=== PATIENT | female | born 1980 | race Caucasian/White ===

== ENCOUNTER 2019-07-17 18:08 | Emergency (ER) | payer OTHER, SELFPAY ==
[2019-07-17 18:11] VITALS: BP 154/86; PULSE 93; RESP 16; TEMP 36.8; O2SAT 96
[2019-07-17 19:03] LABS: Add Urine Microscopic? NO; Appearance Urine Clear (Clear); Basophils Absolute Auto 0.1 K/mm3 (0.0-0.1); Basophils Percent Auto 0.5 % (0.2-1.2); Bilirubin Urine Negative (Negative); Blood Urine Negative (Negative); Color Urine Yellow (Yellow); Eosinophils Absolute Auto 0.2 K/mm3 (0-0.3); Eosinophils Percent Auto 2.2 % (0-4.4); Glucose Urine UA Negative (Negative); Hematocrit 44.1 % (37.0-47.0); Hemoglobin 14.7 g/dL (12.0-15.0); Immature Granulocyte Absolute 0.06 K/mm3 (0.00-0.031); Immature Granulocyte Percent A 0.6 % (0-0.5); Ketones Urine Negative (Negative); Leukocyte Esterase Ur Negative LEU/UL (Negative); Lymphocytes Absolute Auto 3.96 K/mm3 (0.9-3.2); Lymphocytes Percent Auto 40.8 % (18.3-44.2); Mean Corpuscular HGB Conc 33.3 g/dl (32-36); Mean Corpuscular Hemoglobin 30.1 pg (26-34); Mean Corpuscular Volume 90.2 fl (80-100); Mean Platelet Volume 10.5 fl (7.4-10.4); Monocytes Absolute Auto 0.8 K/mm3 (0.1-0.6); Monocytes Percent Auto 8.7 % (2.6-8.5); Neutrophils Absolute Auto 4.6 K/mm3 (1.3-6.7); Neutrophils Percent Auto 47.2 % (45.5-73.1); Nitrate Urine Negative (Negative); Platelet Count Result 350 k/mm3 (150-375); Protein Urine Negative (Negative); Red Blood Count 4.89 M/mm3 (4.2-5.4); Red Cell Distribution Width 12.9 % (11.5-14.5); Specific Grav Ur 1.024 (1.001-1.035); Urobilinogen Urine Negative mg/dL (<2.0); White Blood Count 9.7 K/mm3 (4.5-10.0)
[2019-07-17 19:15] LABS: Alanine Aminotransferase 35 U/L (4-35); Albumin Level 4.7 g/dL (3.5-5.1); Alkaline Phosphatase 64 U/L (38-126); Aspartate Amino Transferase 26 U/L (14-36); Bilirubin,Total 0.2 mg/dL (0.2-1.3); Blood Urea Nitrogen 15 mg/dL (7-17); Calcium 9.5 mg/dL (8.4-10.2); Carbon Dioxide 21 mmol/L (22-30); Chloride 99 mmol/L (98-107); Estimated CRCL calculation 141 ml/min; Estimated Glomerular Filt Rate > 60; Glucose 112 mg/dL (65-105); Lipase 84 U/L (23-300); Potassium 4.1 mmol/L (3.4-5.0); Sodium 136 mmol/L (137-145)
[2019-07-17 20:48] VITALS: BP 157/79; PULSE 75; RESP 16; O2SAT 99
--- NOTE | 2019-07-17 21:25 | ED.ABDPAIN ---
HPI - Abdominal Pain General Chief Complaint: Abdominal Pain Stated Complaint: abd pain Time Seen by Provider: 07/17/19 19:24 Source: patient Mode of arrival: ambulatory Limitations: no limitations History of Present Illness HPI narrative: Patient presents with chief complaint of short, cramping, stabbing pain suprapubically that lasted for approximately 30 minutes prior to arrival. Patient states she did not have any fever, nausea, vomiting, diarrhea, back pain, urinary symptoms. Patient states the pain felt like contractions. Patient states that her fallopian tubes have been removed so she is not . Patient states that she recently into her menstrual cycle. Patient denies eating or drinking anything that she believes could have caused her symptoms. Patient denies any pain at this time. Related Data Home Medications Medication Instructions Recorded Confirmed metformin mg PO 07/17/19 norethindrone-e.estradiol-iron tablet 07/17/19 [] Allergies Allergy/AdvReac Type Severity Reaction Status Date / Time No Known Allergies Allergy Verified 07/17/19 18:30 Review of Systems Review of Systems: Narrative: CONSTITUTIONAL: Denies fever, chills, or sweats. EYES: Denies visual changes, redness, or discharge. ENT: Denies rhinorrhea, congestion, sore throat, or otalgia. CARDIOVASCULAR: Denies chest pain, palpitations, or edema. RESPIRATORY: Denies cough or dyspnea. GASTROINTESTINAL: Reported sharp abdominal pain, denies nausea, vomiting, or diarrhea. GENITOURINARY: Denies dysuria or hematuria. SKIN: Denies rash or itching. MUSCULOSKELETAL: Denies back pain, joint pain, or myalgia. NEUROLOGIC: Denies headache, numbness, dizziness, or weakness. PSYCHIATRIC: Denies anxiety or depression. PMFSH Social History Social History Alcohol intake: current Gender identity (if verbalized by the patient): Female Exam Narrative: Exam Narrative: GENERAL: Well-appearing, well-nourished, and in no acute distress. HEAD: Normocephalic, atraumatic. EYES: PERRLA and EOMI. ENT: Nares clear, no rhinorrhea or epistaxis. Mucous membranes moist. Oropharynx without tonsillar hypertrophy exudate or other lesions. Bilateral TMs pearly chandra nonbulging NECK: Supple. No adenopathy or masses. No carotid bruits or JVD CHEST: Clear to auscultation. No respiratory distress. No wheezes rales or rhonchi HEART: Regular rate and rhythm. No murmur heard. Normal peripheral pulses. ABDOMEN: Soft, nontender, nondistended, normal active bowel sounds. EXTREMITIES: Normal range of motion. No edema. SKIN: Warm, dry, no rash. NEURO: No focal deficits. Alert and oriented x3. PSYCH: Normal mood and affect. Course Vital Signs Vital signs: Vital Signs Temperature 98.2 F 07/17/19 18:11 Pulse Rate 93 07/17/19 18:11 Respiratory Rate 16 07/17/19 18:11 Blood Pressure 154/86 H 07/17/19 18:11 Pulse Oximetry 96 07/17/19 18:11 Temperature 98.2 F 07/17/19 18:11 Pulse Rate 75 07/17/19 20:48 Respiratory Rate 16 07/17/19 20:48 Blood Pressure 157/79 H 07/17/19 20:48 Pulse Oximetry 99 07/17/19 20:48 MDM - Abdominal Pain MDM Narrative Medical decision making narrative: Discussed with the patient that her lab work and urine are negative for any acute findings that would be suggestive of the cause of her symptoms. Patient's is in the room and recalls that the patient was diagnosed with endometriosis by her CARE MANAGEMENT ASSOCIATE last week. Patient's symptoms are feeding with endometriosis crampy, sharp stabbing pains. Patient does not have any pain at this time. Patient instructed to follow-up with her CARE MANAGEMENT ASSOCIATE as they are working on managing her endometriosis and are considering control tablets versus hysterectomy. Patient is ready to return to emergency department if she has any re-presenting or urgent symptoms for further evaluation and imaging. Patient states that she has had ultrasounds and other testing performed
== END 2019-07-17 20:54 | disposition home or self-care (01) ==
PROVIDERS: Emergency Medicine; Emergency Provider Emergency Medicine
DX: R10.9 Unspecified abdominal pain (principal)
CPT/HCPCS: 36415; 80053; 81003; 81025; 83690; 85025; 99283

== ENCOUNTER → 2020-12-17 17:18 | Outpatient (CLI) | payer BC, SELFPAY ==
--- NOTE | ~2020-12-17 | MM_ITS ---
EXAMINATION: MM screening bhavna BI w vamshi HISTORY: Baseline screening. TECHNIQUE: Craniocaudal and mediolateral oblique 3-D tomosynthesis images were obtained and synthetic 2-D images were generated. CAD analysis was submitted and interpreted. COMPARISON: None, baseline BREAST PARENCHYMAL COMPOSITION: The breasts are heterogeneously dense, which may obscure small masses . FINDINGS: RIGHT BREAST: A low-density mass is present in the middle third of the upper outer quadrant of the br east could reflect a cyst. No suspicious calcification or architectural distortion are identified. LEFT BREAST: There is no evidence of suspicious mass, calcification, or architectural distortion to s uggest malignancy. IMPRESSION: 1. Right breast mass. 2. Additional mammographic views and possible breast ultrasound are recommended to evaluate for malig willa and establish a baseline given that this is the first mammographic examination. BI-RADS Category 0: Incomplete: Needs additional imaging evaluation. Reviewed, dictated and finalized at location A. IMPRESSION: 1. Right breast mass. 2. Additional mammographic views and possible breast ultrasound are recommended to evaluate for malignancy and establish a baseline given that this is the fir st mammographic examination. BI-RADS Category 0: Incomplete: Needs additional imaging evaluation.
== END ==
PROVIDERS: Visit Provider Obstetrics & Gynecology
DX: Z12.31 Encounter for screening mammogram for malignant neoplasm of breast (principal); R92.8 Other abnormal and inconclusive findings on diagnostic imaging of breast
CPT/HCPCS: 77063; 77067

== ENCOUNTER → 2021-02-04 07:45 | Outpatient (CLI) | payer BC, SELFPAY ==
--- NOTE | ~2021-02-04 | MMUS_ITS ---
EXAMINATION: MM diagnostic bhavna RT w vamshi, US breast RT limited HISTORY: Follow-up right breast mass TECHNIQUE: Additional 3-D tomosynthesis images of the right breast were performed and synthetic 2-D i mages were generated. CAD analysis was submitted and interpreted. High resolution Limited right breas t ultrasound was performed. COMPARISON: 12/17/2020 BREAST PARENCHYMAL COMPOSITION: The breasts are heterogenously dense, which may obscure small masses FINDINGS: MAMMOGRAPHIC FINDINGS: There is a persistent radiolucent mass in the upper outer quadrant of the right breast. No suspicious architectural distortion or calcifications. ULTRASOUND: Limited right breast ultrasound: At 9:00, 7 cm from the nipple, there is a 1.8 cm cyst corresponding to the mammographic finding. At 9:00, 7 cm from the nipple there is a 7 mm cyst. No suspicious masses to suggest malignancy. IMPRESSION: 1. No evidence for malignancy in the right breast. Benign cysts. 2. Routine yearly screening mammogram and regular clinical breast examination are recommended. BI-RADS Category 2: Benign finding(s). Reviewed, dictated and finalized at location A. IMPRESSION: 1. No evidence for malignancy in the right breast. Benign cysts. 2. Routine yearly screening mammogram and regular clinical breast examination a re recommended. BI-RADS Category 2: Benign finding(s).
== END ==
PROVIDERS: Visit Provider Obstetrics & Gynecology
DX: N63.15 Unspecified lump in the right breast, overlapping quadrants (principal)
CPT/HCPCS: 76642; 77061; 77065; G0279

== ENCOUNTER → 2021-05-12 13:56 | Outpatient (CLI) | payer BC, SELFPAY ==
--- NOTE | ~2021-05-12 | US_ITS ---
EXAMINATION: US pelvic complete DATE: 05/12/2021 14:09 INDICATION: Right ovarian cyst, history of hysterectomy TECHNIQUE: Multiple transabdominal and endovaginal sonographic images of the pelvis were obtained. COMPARISON: None. FINDINGS: The uterus is surgically absent. The right ovary measures 4.1 x 3.9 x 4.7 cm and contains a 3.5 cm simple cyst. The left ovary measures 2.1 x 2.3 x 2 cm. There is normal vascular flow in the o varies. There is no free fluid in the pelvis. IMPRESSION: 1. 3.5 cm simple cyst of the right ovary, considered normal in a reproductive age female requiring no further follow-up. Reviewed, dictated and finalized at location A. ING AND PRIMING OPERATOR IMPRESSION: 1. 3.5 cm simple cyst of the right ovary, considered normal in a reproductive a ge female requiring no further follow-up.
== END ==
PROVIDERS: Visit Provider Obstetrics & Gynecology
DX: N83.201 Unspecified ovarian cyst, right side (principal)
CPT/HCPCS: 76856

== ENCOUNTER → 2021-08-11 15:45 | Outpatient (CLI) | payer BC, SELFPAY ==
--- NOTE | ~2021-08-11 | US_ITS ---
EXAMINATION: US pelvic complete DATE: 08/11/2021 16:08 INDICATION: Ovarian cysts TECHNIQUE: Multiple transabdominal and endovaginal sonographic images of the pelvis were obtained. COMPARISON: 05/12/2021 FINDINGS: The uterus not visualized and reportedly surgically absent. The right ovary measures 5.5 x 4.3 x 6.3 cm. There are couple anechoic cysts in the right ovary, the larger measuring 4.0 cm and the smaller m easuring 1.6 cm. The left ovary measures 2.8 x 1.9 x 2.4 cm. Vascular flow identified in both ovaries on color Doppler. There is no free fluid in the pelvis. IMPRESSION: 1. Status post hysterectomy. 2. A couple simple appearing right ovarian cysts, the larger measuring 4.0 cm. Reviewed, dictated and finalized at location A. TRIMMER
== END ==
PROVIDERS: Visit Provider Obstetrics & Gynecology Gynecology
DX: N83.201 Unspecified ovarian cyst, right side (principal)
CPT/HCPCS: 76856

== ENCOUNTER → 2022-04-09 11:16 | Outpatient (CLI) | payer BC, SELFPAY ==
--- NOTE | ~2022-04-09 | US_ITS ---
EXAMINATION: US pelvic complete DATE: 04/09/2022 11:36 INDICATION: Follow-up right ovarian cyst Comparison:08/11/2021 TECHNIQUE: Multiple transabdominal and endovaginal sonographic images of the pelvis performed. FINDINGS: The uterus is surgically absent. The right ovary measures 3.4 x 2.6 x 3 cm and the left ovary measures 2.3 x 2 x 2 cm. There are smal l follicles in each ovary. There is a right ovarian cyst measuring 1.9 x 1.7 x 1.9 cm Normal doppler signal in both ovaries. There is no free fluid in the pelvis. There are no abnormal masses seen on either side. IMPRESSION: 1. Right ovarian cyst measuring 1.9 cm. Reviewed, dictated and finalized at location A.
== END ==
PROVIDERS: Visit Provider Nurse Practitioner
DX: N83.201 Unspecified ovarian cyst, right side (principal)
CPT/HCPCS: 76856

== ENCOUNTER 2024-01-13 15:13 | Outpatient (CLI) | payer BC, SELFPAY ==
--- NOTE | ~2024-01-13 | MM_ITS ---
EXAMINATION: MM screening bhavna BI w vamshi HISTORY: Screening TECHNIQUE: Craniocaudal and mediolateral oblique 3-D tomosynthesis images were obtained and synthetic 2-D images were generated. CAD analysis was submitted and interpreted. COMPARISON: Comparison to multiple prior studies sequentially, with oldest reviewed study dated 12/17. BREAST PARENCHYMAL COMPOSITION: Not dense: There are scattered areas of fibroglandular density. FINDINGS: There is no evidence of suspicious mass, calcification, or architectural distortion to sugg est malignancy in either breast. There has been no suspicious interval change. IMPRESSION: 1. No mammographic evidence of malignancy. 2. Recommend routine screening mammography in one year. BI-RADS Category 1: Negative Reviewed, dictated and finalized at location B.
== END 2024-01-13 15:14 ==
LOC: MICIMG 15:14
PROVIDERS: PCP Obstetrics & Gynecology Gynecology; Visit Provider Obstetrics & Gynecology Gynecology
DX: Z12.31 Encounter for screening mammogram for malignant neoplasm of breast (principal)
CPT/HCPCS: 77063; 77067